=== PATIENT | female | born 1985 | race Caucasian/White ===

== ENCOUNTER 2025-05-25 10:30 | Outpatient (CLI) | payer BC, SELFPAY ==
[2025-05-26 19:28] LABS: HPV Source Cervix
== END 2025-05-25 10:31 | disposition home or self-care (01) ==
PROVIDERS: PCP Family Medicine; Visit Provider Registered Nurse
DX: Z12.4 Encounter for screening for malignant neoplasm of cervix (principal); Z11.51 Encounter for screening for human papillomavirus (HPV)
CPT/HCPCS: 87624; 87625; 88141; 88142

== ENCOUNTER 2025-06-14 15:19 | Outpatient (CLI) | payer BC, SELFPAY ==
--- NOTE | 2025-06-21 10:01 | W.PM.SLEEP ---
Sleep Study Details Details Interpreting Provider: Hoda Date of Sleep Study: 06/14/25 Sleep Study Details: STUDY TYPE:? Home unattended ? BMI:? 31.6 ORDERING PROVIDER:Cele Drummond INDICATION:? Concern about sleep apnea ? SLEEP SUMMARY:? 507 minutes monitor RESPIRATORY SUMMARY:? AHI 5.0 per rule 1A, 1.8 per CMS guideline Low oxygen 84 0.1% of study oxygen less than 90% Snoring 98.8% PERIODIC LIMB MOVEMENTS OF SLEEP:? Not recorded CARDIAC:? Range 50-100, mean 64.3 beats per minute IMPRESSION:? Mild obstructive sleep apnea per over rule 1A guideline RECOMMENDATION: Treatment options include CPAP, dental appliance, weight loss and/or airway expansion surgery.
== END 2025-06-14 15:20 | disposition home or self-care (01) ==
LOC: SLEEP 15:21
PROVIDERS: PCP Family Medicine; Visit Provider Otolaryngology
DX: G47.33 Obstructive sleep apnea (adult) (pediatric) (principal)
CPT/HCPCS: 95806

== ENCOUNTER 2025-07-20 11:22 | Outpatient (CLI) | payer BC, SELFPAY ==
--- NOTE | 2025-07-20 11:45 | CRLHL7_ITS ---
For Patients: As a result of the Century Cures Act, medical imaging exams and procedure reports are released immediately into your electronic medical record. You may view this report before your referring provider. If you have questions, please contact your health care provider. INDICATION: Personal history of other benign neoplasm. COMPARISON: None. TECHNIQUE: 2D mao-scale and color Doppler images were acquired of the pelvis using a transabdominal and transvaginal approach. Transvaginal imaging performed to better visualize the endometrial stripe and ovaries. FINDINGS: Posterior intramural fibroid measures 10 x 11 x 10 millimeters. Additional posterior intramural fibroid measures 14 x 9 x 13 millimeters. Posterior exophytic fibroid measures 3.8 x 4.5 x 5.9 cm. Lower uterine segment fibroid measures 5 x 5 x 8 millimeters. Uterus measures 9.8 cm in length by 4.6 cm in AP diameter by 6.3 cm in transverse dimension. Hyperechoic structure associated with the endometrium measures 6 x 7 x 16 millimeters. Endometrial thickness 11 millimeters. The right ovary measures 3.7 x 2.1 x 2.8 cm in size and the left ovary measures 2.4 x 1.5 x 1.6 cm. The ovaries demonstrate normal arterial and venous blood flow on color Doppler analysis. There are no suspicious fluid collections within the cul-de-sac. IMPRESSION: Multiple uterine fibroids. The largest is pedunculated and arises from the posterior uterus measuring up to 5.9 cm. Probable endometrial polyp measuring 16 millimeters. Dictated by Marc Womack MD @ 07/20/2025 3:54:26 PM (Electronically Signed)
== END 2025-07-20 11:23 | disposition home or self-care (01) ==
LOC: US 11:22
PROVIDERS: PCP Family Medicine; Visit Provider Registered Nurse
DX: Z86.018 Personal history of other benign neoplasm (principal); D25.9 Leiomyoma of uterus, unspecified; N84.0 Polyp of corpus uteri
CPT/HCPCS: 76830; 76856

== ENCOUNTER 2025-08-03 05:56 | Day surgery (SDC) | payer BC, SELFPAY ==
[2025-08-03 06:36] VITALS: BMI 30.8
[2025-08-03 06:36] LABS: Hemoglobin* 14.0 gm/dL (12.0-16.0)
[2025-08-03 06:38] LABS: Ur HCG Qualitative* Negative (Negative)
[2025-08-03 06:45] VITALS: BP 109/71; PULSE 73; RESP 16; TEMP 36.7; O2SAT 95
[2025-08-03] MEDS: LACTATED RINGERS 500 ML 500 ML 100 ML IV ×2 (06:49→07:54)
[2025-08-03] MEDS: SODIUM CHLORIDE 0.9 % (FLUSH) 10 ML SYRINGE IVF (06:49)
--- NOTE | 2025-08-03 07:13 | W.PM.H&PU ---
History & Physical Update History & Physical Update H&P Reviewed and patient assessed: No changes noted
[2025-08-03] MEDS: BUPIVACAINE 0.5% 30 ML INJECTION (07:43)
[2025-08-03 08:00] VITALS: BP 118/84; PULSE 75; RESP 16; TEMP 36.8; O2SAT 95
--- NOTE | 2025-08-03 08:00 | P.GYNPRC_ITS ---
Procedure Note Date of procedure: 08/03/25 Will [facility] bill your pro fee for this procedure?: Yes Pre-op diagnosis: Desire for fertility, history of endometrial polyps, suspected endometrial polyp Post-op diagnosis: Same Procedure: Hysteroscopy, dilation and curettage Anesthesia: MAC Complications: None Surgeon: Pete Huntley MD Estimated blood loss (mL): 5 IV fluids (mL): 500 Urine Output (mL): 200 Pathology: specimen obtained, sent to pathology (endometrial curettings) Condition: stable Disposition: same day Findings: Findings: Normal external genitalia, cervix w/o gross lesions or abnormal discharge. Intrauterine cavity: Bilateral cornual openings seen, posterior uterine wall with suspected endometrial polyp. Uterine sound 8.5cm. Procedure Description: Patient was taken to the OR were MAC anesthesia was administered without difficulty. She was placed in the dorsal lithotomy position with Nabor type stirrups. Patient was then prepared and draped in the normal sterile fashion. An exam under anesthesia as described above. A bivalved speculum was inserted in the posterior aspect of the vagina. 0.5% Bupivacaine plain was injected at 2 and 11 o'clock a total of about 10mL utilized. A single-tooth tenaculum was used to grasp the anterior lip of the cervix. The cervical os was sequentially dilated to accommodate the 5 mm TrueClear hysteroscope using Hegar dilators. The uterus was carefully sounded to 8.5 cm. A 5 mm 30 degree TrueClear hysteroscope was introduced under direct visualization, and the uterus was distended with normal saline. Findings as above. Soft tissue incisor blade from TrueClear hysteroscope system was introduced under direct visualization and endometrial curettings performed with removal of polypoid lesion. Hysteroscope removed under direct visualization. Tenaculum was removed from the cervix and good hemostasis was noted at puncture sites. Patient tolerated the procedure well. Instrument and sponge counts were correct x2. The patient was awakened from MAC anesthesia and taken to the recovery room in a stable condition. The patient will go home after recovering from anesthesia and meeting all the criteria for discharge. She was given instruction regarding follow-up visit in 2 weeks at [facility] and instructions for pain medication. Fluid deficit: 200mL
--- NOTE | 2025-08-03 08:04 | SUR.OPER ---
deficit= 200
--- NOTE | 2025-08-03 08:05 | SUR.OPER ---
[id number]=[id number]
--- NOTE | 2025-08-03 08:06 | P.ANES_ITS ---
Anesthesia Charges Start Date/Time Anesthesia Start Date: 08/03/25 Anesthesia Start Time: 07:22 Stop Date/Time Anesthesia Stop Date: 08/03/25 Anesthesia Stop Time: 08:05 Coding CPT Codes CPT Codes: ANESTH HYSTEROSCOPE/GRAPH - 87775 ([id number]) P2 - PATIENT W/MILD SYST DISEASE, QX - OUTREACH COORDINATOR SVC W/ MD MED DIRECTION, QK - INSTRUCTIONAL MATERIAL DIRECTOR 2-4 CNCRNT ANES PROC
--- NOTE | 2025-08-03 08:06 | W.ANESCHARGE ---
Anesthesia Charges Start Date/Time Anesthesia Start Date: 08/03/25 Anesthesia Start Time: 07:22 Stop Date/Time Anesthesia Stop Date: 08/03/25 Anesthesia Stop Time: 08:05 Coding CPT Codes CPT Codes: ANESTH HYSTEROSCOPE/GRAPH - 93830 ([id number]) P2 - PATIENT W/MILD SYST DISEASE, QX - IRISH MOSS BLEACHER SVC W/ MD MED DIRECTION, QK - DOCK ASSOCIATE 2-4 CNCRNT ANES PROC
[2025-08-03 08:15] VITALS: BP 110/72; PULSE 60; RESP 16; O2SAT 97
[2025-08-03 08:29] VITALS: BP 108/71; PULSE 73; RESP 16; O2SAT 98
--- NOTE | 2025-08-03 12:30 | P.ANES_ITS ---
Anesthesia Charges Start Date/Time Anesthesia Start Date: 08/03/25 Anesthesia Start Time: 07:22 Stop Date/Time Anesthesia Stop Date: 08/03/25 Anesthesia Stop Time: 08:05 Coding CPT Codes CPT Codes: ANESTH HYSTEROSCOPE/GRAPH - 14191 ([id number]) QX - DIRECTOR RADIO SVC W/ MD MED DIRECTION, QK - DOUBLE BACK OPERATOR 2-4 CNCRNT ANES PROC, P2 - PATIENT W/MILD SYST DISEASE
--- NOTE | 2025-08-03 12:30 | W.ANESCHARGE ---
Anesthesia Charges Start Date/Time Anesthesia Start Date: 08/03/25 Anesthesia Start Time: 07:22 Stop Date/Time Anesthesia Stop Date: 08/03/25 Anesthesia Stop Time: 08:05 Coding CPT Codes CPT Codes: ANESTH HYSTEROSCOPE/GRAPH - 37839 ([id number]) QX - COMMERCIAL OR INSTITUTIONAL CLEANER SVC W/ MD MED DIRECTION, QK - DIESEL INSPECTOR 2-4 CNCRNT ANES PROC, P2 - PATIENT W/MILD SYST DISEASE
== END 2025-08-03 08:46 | disposition home or self-care (01) ==
PROVIDERS: PCP Family Medicine; Visit Provider Obstetrics & Gynecology
PROC: 0UDB8ZZ Extraction of Endometrium, Via Natural or Artificial Opening Endoscopic (ICD-10-PCS; CPT 58558; principal; 2025-08-03 07:15)
DX: N97.9 Female infertility, unspecified (principal); N84.0 Polyp of corpus uteri; N92.0 Excessive and frequent menstruation with regular cycle
CPT/HCPCS: 58558; 00952; 36415; 81025; 85018; 88305; C1782; J0665; J1100; J1885; J2250; J2405; J2704; J3010; J7120

== ENCOUNTER 2025-10-19 13:28 | Outpatient (CLI) | payer BC, SELFPAY ==
--- NOTE | 2025-10-19 14:00 | CRLHL7_ITS ---
For Patients: As a result of the Century Cures Act, medical imaging exams and procedure reports are released immediately into your electronic medical record. You may view this report before your referring provider. If you have questions, please contact your health care provider. OB ULTRASOUND INDICATION: Dating and viability. TECHNIQUE: Real time grayscale imaging of the fetus was performed. Transvaginal. Transvaginal imaging performed to better demonstrate the endometrium and ovaries. LMP: 08/23/2025. DEEPA by LMP: 05/30/2026. GA: 8 w, 1 d. Previous US: No. CRL: 1.8 cm. 8 w 1 d. DEEPA: 05/30/2026. FHR: 163 BPM. Gestational sac: 3.4 cm. Appears within normal limits. Yolk sac: 3.4 mm. Appears within normal limits. Right ovary: 3.6 x 2.0 x 2.3 cm. CL. Left ovary: 2.3 x 1.8 x 1.2 cm. IMPRESSION: 1. Single living intrauterine measures 8 weeks 1 day with sonographic due date 05/30/2026. 2. Posterior exophytic uterine fibroid measures 3.9 x 3.9 x 4.8 cm. Additional posterior fibroid measures 2.6 x 2.7 x 3.3 cm. Additional fibroids are present measuring 1.3 x 1.2 x 2.1 cm and 1.1 x 0.9 x 1.0 cm. 3. Posterior subchorionic hemorrhage measures 1.2 x 1.5 x 0.9 cm. Marc Womack M.D. Diagnostic Radiologist [email or web address] PAULINO/[email or web address]/Dictated by: Marc Womack MD @ 10/19/2025 3:52:00 PM (Electronically Signed)
== END 2025-10-19 13:29 | disposition home or self-care (01) ==
LOC: US 13:29
PROVIDERS: PCP Family Medicine; Visit Provider Advanced Practice Midwife
DX: O34.11 Maternal care for benign tumor of corpus uteri, first trimester (principal); D25.9 Leiomyoma of uterus, unspecified; O20.9 Hemorrhage in early pregnancy, unspecified; Z3A.08 8 weeks gestation of pregnancy; Z67.10 Type A blood, Rh positive
CPT/HCPCS: 76817

== ENCOUNTER 2025-10-19 15:45 | Outpatient (CLI) | payer BC, SELFPAY | END 2025-10-19 15:46 | disposition home or self-care (01) | PROVIDERS: PCP Family Medicine; Visit Provider Advanced Practice Midwife | DX: Z34.81 Encounter for supervision of other normal pregnancy, first trimester (principal); Z67.10 Type A blood, Rh positive | CPT/HCPCS: 83020; 83021; 85660; 86703; 86704; 86706; 86762; 86780; 86787; 86803; 86850; 86900; 86901; 87086; 87340 ==